=== PATIENT | male | born 1995 | race Caucasian/White ===

== ENCOUNTER 2025-06-16 10:00 | Outpatient (RCR) | payer OTHER, SELFPAY ==
--- NOTE | 2025-05-10 16:19 | OPREHPOC ---
Outpatient Therapy Plan of Care This is a Multidisciplinary Plan of Care that may contain components documented by all disciplines (PT, OT, and ST.) PT Problem 1 PT Problem #1 Knowledge Deficit PT Goal 1 Goal / Goal Update 1* independent with HEP 2* correct body position with HEP Target Visit 6 PT Problem 2 PT Problem #2 Pain PT Goal 1 Goal / Goal Update * pt report pain rating at worst of 3/10 Target Visit 6 PT Problem 3 PT Problem #3 Impaired Range of Motion PT Goal 1 Goal / Goal Update pt perform without an increase in pain reported : 1* cervical rotation to L 2* shoulder abduction and holding at 90' for 10 seconds Target Visit 6 PT Problem 4 PT Problem #4 Impaired Strength PT Goal 1 Goal / Goal Update increase cervical- scapular strength: 1* pt able to hold correct posture during PT session 2* pt perform prone scapular retraction x 20 reps with arm at 90' and overhead Target Visit 6
--- NOTE | 2025-05-10 16:19 | PTOPEVAL1 ---
Assessment and note entered by Deborah Teague, PT Evaluation Information Assessment Status Evaluation ICD-10 Condition Codes (PT) Pain in left shoulder M25.512 cervical pain Onset February 2025 Subjective Information gradual increase in pain in February, eased some, returned to working out/ general strengthening exercises and then returned no imaging of shoulder; pain increases with using arm, but can still do things R hand dominant; work on computers Reported Pain Level Pain Score Self Report Additional Pain Score Comments dull ache over upper arm and mid humerus sharp pain-- starts lower and goes up arm pain range in the past week 2-01/24; increase pain: sitting in car, sitting at computer at work decrease pain: take a walk at work, heat, over the counter meds PRN with sleeping can sleep through the night, tend to sleep on L side with L arm under his pillow and head Assessment PT Clinical Summary Spike has the diagnosis of L shoulder pain. He reports gradual increase in pain without injury. Self assessment Quick DASH rating of 16% limitation in activity level. 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 Pain is increased with holding position a long time in car or at work on computer. Sleep is OK. With the evaluation: he has rounded shoulder and trunk posture; active ROM of shoulder and cervical are WNL, with reports of pain increase with cervical rotation to L and at 90' shoulder abduction & holding arm still; with palpation- tightness and pain over cervical paraspinals R > L , upper traps and pecs. His reports of shoulder pain are vague and he does not have any specific area of shoulder pain. Skilled PT services are indicated for treatment to cervical and L shoulder, possible cervical radicular pain: modalities to decrease pain and spasms; therapeutic exercises to stretch cervical and upper traps with education for posture/body mechanics and HEP. Plan of Care Interventions Electrical Stimulation,Hot Pack/Cold Pack,Manual Therapy,Mechanical Traction,Neuro Re-education, Patient/Caregiver Education,Therapeutic Activities ,Therapeutic Exercise,Ultrasound,Other Other Interventions taping, dry needling PT Services Indicated Yes Treatment Frequency and 1x/wk for 6 visits Duration These treatments will address the objective and functional deficits as defined above. The patient will be advanced safely and appropriately in order for the patient to progress towards his/her prior level of function. Additional exercises will be introduced and as well as a comprehensive home exercise program upon discharge, if needed, ?to ensure carryover of functional gains achieved in the clinic. This treatment plan has been reviewed and agreement upon by the patient.
--- NOTE | 2025-06-16 10:37 | OPREHPOC ---
Outpatient Therapy Plan of Care This is a Multidisciplinary Plan of Care that may contain components documented by all disciplines (PT, OT, and ST.) PT Problem 1 PT Problem #1 Knowledge Deficit PT Goal 1 Goal / Goal Update 1* independent with HEP 2* correct body position with HEP 06-16-25 d/c goals met Target Visit 6 Progress Met PT Problem 2 PT Problem #2 Pain PT Goal 1 Goal / Goal Update * pt report pain rating at worst of 10/24 06-16-25 d/c goal met Target Visit 6 Progress Met PT Problem 3 PT Problem #3 Impaired Range of Motion PT Goal 1 Goal / Goal Update pt perform without an increase in pain reported : 1* cervical rotation to L 2* shoulder abduction and holding at 90' for 10 seconds 06-16-25 d/c goals met Target Visit 6 Progress Met PT Problem 4 PT Problem #4 Impaired Strength PT Goal 1 Goal / Goal Update increase cervical- scapular strength: 1* pt able to hold correct posture during PT session 2* pt perform prone scapular retraction x 20 reps with arm at 90' and overhead 06-16-25 d/c goals met Target Visit 6 Progress Met
--- NOTE | 2025-06-16 10:37 | PTOPDC ---
Assessment and note entered by Deborah Teague, PT Assessment Status Discharge ICD-10 Condition Codes (PT) Cervicalgia M54.2,Pain in left shoulder M25.512 Onset February 2025 Subjective Information doing better; been doing the exercises and watching my posture; hardly have any pain at all, just some ache in mid arm; ready to be finished with PT. Reported Pain Level Pain Score Self Report Additional Pain Score Comments pain range in the past week 0-1/10; both sides of neck and upper traps- tight and ache in shoulder L Assessment PT Clinical Summary Spike has received 6 PT sessions. He has improved in all areas: today pain rating 0-1/10, tightness in neck and upper traps, with ache in L mid humerus; self rating with neck index of 2% limitation in activity; cervical and shoulder ranges WNL and no pain with active motion ; education completed for HEP, posture and body mechanics. The goals were achieved. Discharge PT. He is to continue with his HEP and monitoring his posture and positioning with work and home tasks. Plan of Care PT Services Indicated No
== END 2025-06-16 11:16 | disposition home or self-care (01) ==
LOC: ANHPT 10:00
PROVIDERS: PCP Family Medicine; Visit Provider Physician Assistant
DX: M25.512 Pain in left shoulder (principal)
CPT/HCPCS: 97032; 97110; 97140; 97161; 97530